=== PATIENT | female | born 1995 | race Caucasian/White ===

== ENCOUNTER → 2019-12-13 | Outpatient (CLI) | payer BC, MEDICAID ==
[~2019-12-13] MED LIST: ZOLOFT 25MG25 MG PO
[2019-12-13 00:30] VITALS: BP 113/59; PULSE 73; TEMP 97.8
--- NOTE | 2019-12-13 02:41 | NUR ---
TO LL DUE TO ONE LATE DECEL AT 0030 AFTER BEING ON BACK FOR SVE.
== END ==
LOC: LDRO 00:10
DX: O26.893 Other specified pregnancy related conditions, third trimester (principal); O26.93 Pregnancy related conditions, unspecified, third trimester; R11.10 Vomiting, unspecified; Z3A.35 35 weeks gestation of pregnancy